=== PATIENT | female | born 1955 | race Caucasian/White ===

== ENCOUNTER → 2023-06-26 06:26 | Day surgery (SDC) | payer MEDICARE, OTHER, SELFPAY ==
[2023-06-26 10:11] LABS: Glucose - Point of Care 94 mg/dl (70-99)
== END ==
LOC: GI 06:26
PROVIDERS: ATTENDING PHYSICIAN Specialist
DX: K57.30 Diverticulosis of large intestine without perforation or abscess without bleeding (principal); R19.4 Change in bowel habit
CPT/HCPCS: 45380; 88305; 82962

== ENCOUNTER → 2023-09-10 13:36 | Outpatient (REF) | payer MEDICARE, OTHER, SELFPAY | LOC: HWRAD 13:36 | PROVIDERS: ATTENDING PHYSICIAN Obstetrics & Gynecology; FAMILY PHYSICIAN Family Medicine | DX: N83.209 Unspecified ovarian cyst, unspecified side (principal) | CPT/HCPCS: 76830; 76856 ==

== ENCOUNTER → 2023-11-30 07:56 | Outpatient (REF) | payer MEDICARE, OTHER, SELFPAY | LOC: PAVMRI 07:56 | PROVIDERS: ATTENDING PHYSICIAN Family Medicine | DX: Z00.00 Encounter for general adult medical examination without abnormal findings (principal); M79.604 Pain in right leg | CPT/HCPCS: 73718 ==

== ENCOUNTER → 2024-01-31 12:40 | Outpatient (REF) | payer MEDICARE, OTHER, SELFPAY | LOC: RCS 12:40 | PROVIDERS: ATTENDING PHYSICIAN Internal Medicine Cardiovascular Disease; FAMILY PHYSICIAN Family Medicine | DX: E78.2 Mixed hyperlipidemia (principal); E78.00 Pure hypercholesterolemia, unspecified; R73.03 Prediabetes; E03.9 Hypothyroidism, unspecified; R94.31 Abnormal electrocardiogram [ECG] [EKG]; Z82.49 Family history of ischemic heart disease and other diseases of the circulatory system | CPT/HCPCS: 93017; 93350 ==

== ENCOUNTER → 2024-02-15 13:30 | Outpatient (REF) | payer MEDICARE, OTHER, SELFPAY | LOC: HWRCS 13:30 | PROVIDERS: ATTENDING PHYSICIAN Internal Medicine Cardiovascular Disease; FAMILY PHYSICIAN Family Medicine | DX: E78.2 Mixed hyperlipidemia (principal); E78.00 Pure hypercholesterolemia, unspecified | CPT/HCPCS: 93306 ==

== ENCOUNTER 2024-06-28 18:10 | Emergency (ER) | payer MEDICARE, OTHER, SELFPAY ==
[2024-06-28 18:13] VITALS: BP 152/74
--- NOTE | 2024-06-28 19:03 | ED.GENMED ---
History of Present Illness
General
Chief Complaint: Musculo-Skeletal Complaint
Source: patient and spouse
Time Seen by Provider: 06/28/24 18:29
History of Present Illness
History of Present Illness:
This patient is a 68-year-old female presents emergency department complaints of shoulder pain that she first noticed about a month ago described as feeling 'stiff'. She thought she might of slept on it wrong. However, this pain has intensified
over the month. In addition, she noted the onset of right shoulder pain which is also getting progressively worse. Her shoulders are painful at rest but particularly worse when she tries to raise her arms. She says that her strength is intact,
but she has decreased range of motion because of pain. She saw her orthopedic doctor and was prescribed meloxicam. She is also taking Tylenol and Flexeril, but symptoms are not fully resolved which prompted her visit here. She denies recent
trauma or falls chest pain, dyspnea, fever, chills, diaphoresis, rash, recent tick bites, numbness, tingling back pain, neck pain headache, dizziness, abdominal pain, swelling, or other complaints. She says the pain is localized to the shoulders
bilaterally, and she does not quite feel like it is in the joint or in the muscles, described as hard to explain. Of note, patient was diagnosed with bilateral hip tendinitis within the year, although symptoms resolved with right exercises.
Past History
Past History
ED Past Medical History: Cancer, Hypercholesterolemia, Hypothyroidism, Psychiatric and Other
ED Past Surgical History: and Tonsilectomy
Social History
Tobacco: Non-smoker
Alcohol: Former
Drug: None
Personal:
Living: with family
Employment: Employed
Family History
Family History: Other (Mother with breast cancer); Negative Early CAD
Phy Exam
Physical Exam
Physical Exam:
GENERAL: Alert , in no apparent distress
EYE: pupils equal and reactive
NECK: Supple, no significant adenopathy.
ENT: o/p clr, mmm.
CARDIAC: Regular rate and rhythm .
LUNGS: Clear breath sounds bilaterally, no acute respiratory distress, no wheezes/rales/rhonchi
ABDOMEN: Soft, without focal tenderness, no r/g, no cvat
NEUROLOGICAL: Alert and oriented, no focal neuro deficits
SKIN: Warm and dry, skin intact.
MUSCULOSKELETAL: No edema, well perfused. Full range of motion of upper and lower extremities including shoulder. She does express discomfort with raising arms above the head, no pain with external rotation of upper extremities bilaterally. No
deformity, crepitus, redness, swelling, fluctuance, or other abnormalities with palpation noted of the shoulders bilaterally. Pulses intact, sensation intact, motor 5 out of 5
PSYCH: Normal and appropriate interaction.
Course
Orders/Labs/Results
Orders:
Orders
06/28/24 18:29
Electrocardiogram (*1) Urgent
Reason for Study: Other
Other Reason for Exam: shoulder pain
EKG- Treatment ONCE
06/28/24 19:02
Tramadol HCl [Ultram] 50 mg PO NOW STA
Shoulder, Left 2 View CR [CR Shoulder - Left Min 2 View*] Urgent
Comment:
Reason For Exam: pain
Shoulder, Right 2 Views [CR Shoulder - Right Min 2 View] Urgent
Comment:
Reason For Exam: pain
06/28/24 19:26
CPK [Creatine Phosphokinase] Urgent
CRP [C-Reactive Protein] Urgent
Complete Blood Count/No Diff Urgent
Comprehensive Metabolic Panel Urgent
ESR [Erythrocyte Sed Rate] Urgent
Lyme Progressive Urgent
Abnormal Lab Results
06/28/24
19:26
Hct 36.8 L %
(37.0-47.0)
BUN 21 H mg/dl
(7-17)
Creatinine 1.1 H mg/dL
(0.6-1.0)
Glucose 131 H mg/dl
(70-99)
Total Protein 5.7 L g/dl
(6.3-8.2)
06/28/24 19:26
06/28/24 19:26
Vital Signs
Initial and Last Documented VS:
Initial Vital Signs
Temp Pulse Resp BP Pulse Ox
98.2 F 83 16 152/74 100
06/28/24 18:13 06/28/24 18:13 06/28/24 18:13 06/28/24 18:13 06/28/24 18:13
Last Documented Vital Signs
Temp Pulse Resp BP Pulse Ox
98.2 F 83 16 152/74 100
06/28/24 18:13 06/28/24 18:13 06/28/24 18:13 06/28/24 18:13 06/28/24 18:13
*Critical Care Note
Total Time (30-74mins, 75-104mins- exclusive of procedures): Not Applicable
Update Note
Update Note:
Patient presents to the Emergency Department with bilateral shoulder pain
Number and Complexity of Problems Addressed at the Encounter
� Chronic conditions affecting care:
� Acute Exacerbation and/or Progression of Chronic Illness:
� Differential Diagnosis includes: But not limited to ACS, tendinitis, arthritis, rhabdomyolysis, Lyme disease, etc. etc. etc.
Amount and/or Complexity of Data to be Reviewed and Analyzed
� I performed an independent evaluation of and my interpretation is:
EKG: Read by me, normal sinus rhythm, normal rate, normal axis, no acute
CT:
Xrays: Degenerative disease bilateral shoulders otherwise NAD
Laboratory Studies: Slight elevation in creatinine, patient will be advised and labs printed for her for follow-up. ESR and CRP normal which is reassuring, less likely to reflect acute infectious or inflammatory condition.
Lyme is pending which patient is aware of and importance of follow-up. CPK within normal limits
Other:
� Review of other/old records reveals:
� Clinical information was obtained by an independent historian: who is bedside
� Prescriptions/Medications Considered but not given:
� Further testing considered but not performed:
Risk of Complications and/or Morbidity or Mortality of Patient Management
� Social determinants of health affecting care:
� Discussion with other providers (PCP, Hospitalists, Consultants, etc):
� Escalation of care including admission/observation vs risk of discharge considered: Patient declines more pain medication here at home she would prefer to continue with her nonsteroidal, Tylenol, and Flexeril as needed. She
has an Ortho appointment in the next few days. No emergent findings here to suggest septic arthritis, neck Fasc, etc. etc. Discussed with patient importance of follow-up and reasons to return to the ER.
ED Attending Note
-
Portions of this chart may have been created with voice recognition software.� Occasional wrong word or��sound alike� substitutions may have occurred due to the inherent limitations of voice recognition software.
Discharge Plan
Departure
Patient Disposition: Home (Routine Discharge)
Date of Disposition: 06/28/24
Time of Disposition: 20:09
Patient with high blood pressure during this ER visit?: Yes
Condition: Good
Discharge Problem:
Bilateral shoulder pain
Instructions: Shoulder pain, BLOOD PRESSURE
Prescriptions:
No Action
cholecalciferol (vitamin D3) 2,000 UNITS tablet
2,000 unit PO DAILY
Cholestyramine Packet
2 gm PO DAILY
Patient Comments:
2 gm = 1/2 packet
cetirizine 10 MG tablet
10 mg PO DAILY
alendronate 70 MG tablet
70 mg PO WEEKLY
Patient Comments:
Takes on Sundays
simvastatin 20 MG tablet
20 mg PO QPM
rnyilwaq-kiy-WT-lycopen-lutein [Centrum Silver] 1 EACH tablet
1 tab PO DAILY
hydromorphone 2 MG tablet
2 mg PO Q4HPRN PRN (Reason: pain>4/10) Qty: 20 0RF
metformin 500 MG tablet
500 mg PO BID@0800,1700 0RF
trazodone 50 MG tablet
225 mg PO QPM 0RF
levothyroxine 100 MCG tablet
100 mcg PO DAILY AT 0700 0RF
trazodone 100 MG tablet
225 mg PO QPM 0RF
furosemide 20 MG tablet
20 mg PO DAILY 0RF
Referrals:
Zander Sr MD [Family Provider] -
Activity Restrictions/Additional Instructions:
PLEASE SEE THE ORTHOPEDIC DOCTOR SCHEDULED THIS WEEK. PLEASE BRING YOUR LAB REPORTS WITH YOU WHEN YOU SEE YOUR PRIMARY CARE DOCTOR FOR FOLLOW-UP REGARDING MINOR ABNORMALITIES NOTED HERE. IF YOU DEVELOP FEVER, REDNESS, WARMTH, NUMBNESS,
WEAKNESS, OR OTHER WORRISOME SIGNS, PLEASE CONTACT YOUR DOCTOR OR GO TO THE ER IMMEDIATELY
Interventions
Interventions:
*Risk Screen - Suicide Last Done: 06/28/24 18:16
*Neglect/Abuse Screening Last Done: 06/28/24 18:16
Discharge Date and Time
Print Language: SAMI
[2024-06-28] MEDS: ULTRAM 50 MG PO (19:21)
[2024-06-28 19:32] LABS: Hematocrit 36.8 % (37.0-47.0); Hemoglobin 12.7 g/dL (12.0-16.0); Mean Corp Hgb Conc. 34.5 g/dL (33.0-37.0); Mean Platelet Volume 9.7 fL (7.4-10.4); Platelet Count 237 10^3/uL (130-400); Red Blood Cell Count 4.38 10^6/uL (4.20-5.40); Red Cell Dist. Width 13.2 % (11.5-14.5); White Blood Cell Count 5.4 10^3/uL (4.8-10.8)
[2024-06-28 19:48] LABS: ALT (SGPT) 30 U/L (0-35); AST (SGOT) 25 U/L (14-36); Albumin 3.8 g/dl (3.5-5.0); Alkaline Phosphatase 50 U/L (38-126); Blood Urea Nitrogen 21 mg/dl (7-17); Calcium 9.2 mg/dl (8.4-10.2); Carbon Dioxide 30 mmol/L (22-30); Chloride 107 mmol/L (98-107); Creatine Phosphokinase 57 U/L (30-135); Glucose 131 mg/dl (70-99); Potassium 3.9 mmol/L (3.5-5.1); Sodium 141 mmol/L (135-145); Total Bilirubin 0.3 mg/dl (0.2-1.3); Total Protein 5.7 g/dl (6.3-8.2); eGFR 55.07
[2024-06-28 19:51] LABS: C-Reactive Protein < 5.00 mg/L (0.0-10.00)
[2024-06-28 20:06] LABS: Erythrocyte Sed Rate 2 mm/hour (0-20)
[2024-06-28 20:28] VITALS: BP 131/63
[2024-06-30 14:12] LABS: Lyme Antibody Screen, EIA Negative (Negative)
== END 2024-06-28 20:31 | disposition home or self-care (01) ==
LOC: EMR 18:10
PROVIDERS: EMERGENCY PHYSICIAN Emergency Medicine; FAMILY PHYSICIAN Family Medicine
DX: M25.512 Pain in left shoulder (principal); M25.511 Pain in right shoulder; E78.00 Pure hypercholesterolemia, unspecified; E03.9 Hypothyroidism, unspecified; Z80.3 Family history of malignant neoplasm of breast
CPT/HCPCS: 99283; 73030; 80053; 82550; 85027; 85652; 86140; 86618; 93005

== ENCOUNTER → 2024-11-10 07:30 | Outpatient (REF) | payer MEDICARE, OTHER, SELFPAY | LOC: HWRAD 07:30 | PROVIDERS: ATTENDING PHYSICIAN Family Medicine; REFERRING PHYSICIAN Internal Medicine Rheumatology | DX: M81.0 Age-related osteoporosis without current pathological fracture (principal) | CPT/HCPCS: 77080 ==

== ENCOUNTER → 2024-12-17 17:23 | Outpatient (REF) | payer MEDICARE, OTHER, SELFPAY ==
[2024-12-24 04:07] LABS: HPV, High Risk Not Detected; HPV, High Risk Source Anal
== END ==
LOC: CLAB 17:23
PROVIDERS: ATTENDING PHYSICIAN Surgery
DX: Z87.410 Personal history of cervical dysplasia (principal)
CPT/HCPCS: 87624; 88112

== ENCOUNTER 2025-03-04 06:18 | Day surgery (SDC) | payer MEDICARE, OTHER, SELFPAY ==
[2025-03-04 09:41] VITALS: BMI 26.8
[2025-03-04 09:42] VITALS: BMI 26.8
[2025-03-04 09:48] VITALS: BP 116/66
[2025-03-04] MEDS: TYLENOL 1000 MG PO (09:52)
[2025-03-04] MEDS: NORMOSOL-R/PLASMALYTE-A 1000 IV (10:00)
[2025-03-04 13:18] VITALS: BP 103/79
[2025-03-04 13:30] VITALS: BP 101/52
--- NOTE | 2025-03-04 13:37 | W.IMMPOSTOP ---
Addendum entered and electronically signed by Kalen Fermin MD 03/04/25 14:25:
Updated patient in SDS
Original Note:
Surgical Immed Post Op Note
-
Primary Surgeon: Kalen Fermin MD
Assisting Surgeon: None
Pre-op Diagnosis: Anal ASCUS, history of cervical dysplasia
Post-op Diagnosis: Anal ASCUS, history of cervical dysplasia
Procedure Performed: High-resolution anoscopy with biopsy, bilateral pudendal nerve block
Anesthesia Type: Sedation with local
Specimen / Cultures:
1. Left anterior perianal biopsy
2. Left lateral/posterior perianal biopsy
3. Right anterior perianal biopsy
4. Posterior mid-anal canal biopsy
5. Posterior/left mid-anal canal biopsy
6. Right anterior deep anal canal biopsy
7. Left anterior mid-anal canal biopsy
Estimated Blood Loss: 5 mL
Complications: None
Operative Findings: Multiple areas of acetowhite and Lugol's partial or complete negative, biopsies as above; placed gauze and mesh underwear for dressing
--- NOTE | 2025-03-04 13:39 | OR.RPT ---
Operative Report
Operative Report
DATE OF OPERATION: 03/04/2025
SURGEON: Kaeln Fermin MD
PREOPERATIVE DIAGNOSIS: Anal ASCUS, history of cervical dysplasia
POSTOPERATIVE DIAGNOSIS: Anal ASCUS, history of cervical dysplasia
OPERATION: Exam under anesthesia, high-resolution anoscopy, multiple anal biopsies, bilateral pudendal nerve block
ASSISTANTS:
1. None
ANESTHESIA: Sedation with local
ESTIMATED BLOOD LOSS: 5 mL
FINDINGS:
1. Multiple acetowhite lesions with varying degrees of Lugol's negativity, biopsied
2. One lesion in the right anterior proximal anal canal that was acetowhite, Lugol's negative with macropunctations, biopsied
3. No other concerning findings: no masses, no proctitis, no concerning internal hemorrhoids
SPECIMENS:
1. Left anterior perianal biopsy
2. Left lateral/posterior perianal biopsy
3. Right anterior perianal biopsy
4. Posterior mid-anal canal biopsy
5. Posterior/left mid-anal canal biopsy
6. Right anterior deep anal canal biopsy
7. Left anterior mid-anal canal biopsy
DRAINS: None
COMPLICATIONS: None
INDICATIONS: The patient is a 69-year-old female who presented to my office for difficulty with complete evacuation of stool and hygiene. She indicated a history of cervical dysplasia in her 20s requiring fulguration. I performed an anal Pap,
which came back HPV negative and with atypical cells of undetermined significance. I discussed next steps, including either repeat anal Pap in 1 year versus proceeding with high-resolution anoscopy. The patient elected to proceed with HRA. Due to
her anxiety with procedures, I recommended proceeding with HRA under sedation. The operation was discussed with the patient in detail, including the risks, benefits and alternatives. Risks described included, but not limited to bleeding, infection,
urinary retention, damage to nearby structures such as the anal sphincter, missed lesions, recurrence, progression to anal cancer despite monitoring/treatment and treatment and anesthetic risks. The patient understood and agreed to proceed. The
consent was signed and placed in the chart.
PROCEDURE IN DETAIL: The patient was taken to the operating room. The patient was placed on the operating table in prone position. Sequential compression devices were placed bilaterally. Sedation was commenced without complication. Two seat belts
were secured around the legs and upper back. The buttocks were taped apart. The perineum was prepped and draped in the usual fashion. A time-out was performed verifying the correct patient, procedure, operative site, positioning, and special
equipment.
Local anesthesia used was a mixture of 30 mL of 0.25% Marcaine with epinephrine, 30mL of 1% lidocaine plain and 0.6 mg of dexamethasone. 40 mL was injected perianally at the beginning of the case. The anorectal exam was performed assessing all four
quadrants of the anal canal using Hill-Bender retractors in progressively increasing size. There were no masses. There was no proctitis. There were no concerning internal hemorrhoids. The anal canal was 2 to 3 cm in length.
I placed a ray-promise soaked in 5% acetic acid within the anal canal and folded an external portion of it to cover the ophelia-anal region. This was left in place for 3 minutes and then removed. The anal canal was again visualized with Hill-Bender
retractors. Each quadrant was examined using the laparoscope on highest zoom, allowing for high-resolution. Lugol's 2% solution was then swabbed on to each quadrant under direct visualization using high-resolution.
In the perianal area, there was a patch of acetowhite anoderm in the left anterior perianal region, close to the anal verge. There were no concerning vascular patterns. This was biopsied. There was an additional patch of acetowhite anoderm in the
left lateral/posterior perianal position close to the anal verge. There were no concerning vascular patterns. This was biopsied. There was a very small elevated lesion in the right anterior perianal position close to the anal verge, which was
acetowhite. This was biopsied. Due to the size, the lesion was completely excised for the biopsy. Hemostasis was assured with electrocautery.
In the posterior quadrant, there was a patch of acetowhite anoderm that was Lugol's negative, located in the mid anal canal along the midline. There were no concerning vascular patterns. This was biopsied. There was an additional area in the
posterior quadrant to the left of midline in the mid anal canal. This was acetowhite and Lugol's negative, but no vascular patterns. This was biopsied. Hemostasis was assured with electrocautery.
In the right lateral quadrant, there was a patch of acetowhite, Lugol's negative epithelium at the squamocolumnar junction. There appeared to be macro punctations. This was biopsied. Hemostasis was assured with electrocautery.
In the anterior quadrant, there was no concerning acetowhite, Lugol's negative lesion so no biopsy was performed.
In the left lateral quadrant, there was an area that appeared acetowhite and Lugol's negative in the left anterior mid anal canal. There were no concerning vascular patterns. This was biopsied. Hemostasis was assured with electrocautery.
All biopsies were taken with a forceps and Metzenbaum scissors and were a couple millimeters in size. The remaining 20 mL of local were injected. 5 mL was injected bilaterally for a pudendal nerve block. 10 mL was injected around the surgical site
and perianally. Hemostasis was reassessed once more using the small Hill-Bender and was confirmed.
At this point, the procedure was complete. All needle, sponge and instrument counts were correct. The patient tolerated the procedure well and was transferred to the recovery room in stable condition with gauze and mesh underwear.
DICTATED BY: Kalen Fermin MD
[2025-03-04 13:45] VITALS: BP 104/71
[2025-03-04 14:00] VITALS: BP 106/62
== END 2025-03-04 14:25 | disposition home or self-care (01) ==
LOC: SDS 06:18
PROVIDERS: ATTENDING PHYSICIAN Surgery
DX: R85.610 Atypical squamous cells of undetermined significance on cytologic smear of anus (ASC-US) (principal); K62.89 Other specified diseases of anus and rectum; Z87.410 Personal history of cervical dysplasia
CPT/HCPCS: 45990; 46607; 88305; 88341; 88342